=== PATIENT | female | born 1985 | race Caucasian/White ===

== ENCOUNTER 2017-07-21 23:26 | Emergency (ER) | payer OTHER ==
[2017-07-21 23:41] VITALS: RESP 18
[2017-07-21] MEDS: SODIUM CHLORIDE 0.9% FLUSH 10 ML SOL IV PRN (23:55)
[2017-07-22 00:12] LABS: BASOPHILS % (AUTO) 1 % (0-3); EOSINOPHILS % (AUTO) 1 % (0-9); HEMATOCRIT 41 % (35-47); MEAN CORPUSCULAR HGB CONC 34.1 gm/dl (32.0-36.0); MEAN CORPUSCULAR VOLUME 89 fL (81-99); MONOCYTES % (AUTO) 11.6 % (0-12)
[2017-07-22 00:22] LABS: APPEARANCE,URINE Clear; BILIRUBIN,URINE NEGATIVE (NEGATIVE); COLOR,URINE Yellow; GLUCOSE, URINE (UA) NEGATIVE (NEGATIVE); KETONES,URINE NEGATIVE (NEGATIVE); LEUKOCYTE ESTERASE ,URINE NEGATIVE (NEGATIVE); NITRATE,URINE NEGATIVE (NEGATIVE); OCCULT BLOOD,URINE NEGATIVE (NEG-TRACE); PH,URINE 5.5; UROBILINOGEN,URINE 0.2 (0.2-1.0 EU)
[2017-07-22 00:28] LABS: ALBUMIN 3.6 gm/dl (3.4-5.0); CALCIUM 8.8 mg/dl (8.5-10.1); POTASSIUM 3.8 mMol/L (3.5-5.1)
[2017-07-22 00:38] LABS: RBC,URINE NEG (0-3AV/HPF); WBC,URINE 0-1 (0-5AV/HPF)
[2017-07-22 00:43] VITALS: TEMP 97.4
[2017-07-22] MEDS ORDERED: KETOROLAC TROMETHAMINE 30 MG/ML SOL IV ONE (02:09)
[2017-07-22] MEDS ORDERED: KETOROLAC TROMETHAMINE 30 MG/ML SOL ONE (02:10)
[2017-07-22] MEDS: SODIUM CHLORIDE 0.9% FLUSH 10 ML SOL IV PRN (02:13)
[2017-07-22 02:24] VITALS: O2SAT 100
[2017-07-22 02:25] VITALS: BP 146/97; PULSE 73
== END 2017-07-22 02:44 | disposition home or self-care (01) ==
LOC: ED 23:26
DX: R10.13 Epigastric pain (principal)
CPT/HCPCS: 36415; 74177; 80053; 81001; 85025; 99285; J1885; Q9967

== ENCOUNTER 2018-10-17 20:04 | Emergency (ER) | payer OTHER ==
[2018-10-17 20:05] VITALS: O2SAT 100
[2018-10-17 20:47] VITALS: BP 135/89; PULSE 18; RESP 18; TEMP 98.1
== END 2018-10-17 22:25 | disposition home or self-care (01) | DRG 556 ==
LOC: ED 20:04
DX: M79.642 Pain in left hand (principal)
CPT/HCPCS: 73130; 99282